=== PATIENT | male | born 1930 ===

== ENCOUNTER 2017-02-28 11:55 | Emergency (ER) | payer MEDICARE ==
[2017-02-28 12:44] VITALS: BMI 20.6
[2017-02-28 12:46] VITALS: RESP 18; TEMP 99; O2SAT 97
--- NOTE | 2017-02-28 13:48 | ED PDOC ---
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 On Tuesday, patient was lying down in a hammock and tried to get up but instead fell down onto his knees. Since then, pain has been gradually worsening and the right knee has become swollen. Patient is unable to extend his knee due to pain. Patient also complains of left ankle and foot swelling that was not present before the fall. Fall was unwitnessed, but patient denies hitting his head or losing consciousness. (Alonzo Beal) Past Medical History - Infectious Disease Hx of Infectious Diseases: None - Tetanus Immunization Tetanus Immunization: Unknown - Cardiac Hx Hypertension: Yes - Psychiatric Hx Depression: No Hx Emotional Abuse: No Hx Physical Abuse: No Hx Substance Use: No - Past Surgical History Past Surgical History: No Previous - Surgical History Other/Comment: Brain aneurysm. Ulcer - Anesthesia Hx Anesthesia: Yes Hx Anesthesia Reactions: No Hx Malignant Hyperthermia: No - Suicidal Assessment Feels Threatened In Home Enviroment: No <Alonzo Beal - Last Filed: 02/28/17 16:20> - Provider Review Nursing Documentation Reviewed: Yes <Arely Willis - Last Filed: 02/28/17 16:55> Family/Social History Family/Social History: No Known Family HX Smoking Status: Never Smoked Hx Alcohol Use: Yes Frequency of alcohol use: Socially Hx Substance Use: No <Alonzo Beal - Last Filed: 02/28/17 16:20> - Physician Review Nursing Documentation Reviewed: Yes <Arely Willis - Last Filed: 02/28/17 16:55> Allergies/Home Meds <Alonzo Beal - Last Filed: 02/28/17 16:20> <Arely Willis - Last Filed: 02/28/17 16:55> Allergies/Adverse Reactions: Allergies No Known Allergies Allergy (Verified 07/08/13 11:17) Home Medications: Home Meds Medication Instructions Recorded Confirmed Unobtainable 02/28/17 02/28/17 Review of Systems - Review of Systems Constitutional: Normal Eyes: Normal ENT: Normal Respiratory: Normal Cardiovascular: Normal Gastrointestinal: Normal Genitourinary Male: Normal Musculoskeletal: Other (right knee pain and swelling. left ankle and foot swelling) Skin: Other (erythema over right knee and right foot digits) Neurological: Normal <Alonzo Beal S - Last Filed: 02/28/17 16:20> Physical Exam Vital Signs Reviewed: Yes Appearance: Positive for: Comfortable Pain Distress: Mild Mental Status: Positive for: Alert and Oriented X 3 - Systems Exam Head: Present: Atraumatic, Normocephalic, Other (xanthomas around the eyes) Pupils: Present: PERRL Extroacular Muscles: Present: EOMI Conjunctiva: Present: Normal Mouth: Present: Moist Mucous Membranes Neck: Present: Normal Range of Motion Respiratory/Chest: Present: Clear to Auscultation, Good Air Exchange. No: Accessory Muscle Use Cardiovascular: Present: Regular Rate and Rhythm, Normal S1, S2 Abdomen: Present: Normal Bowel Sounds. No: Tenderness Upper Extremity: Present: Normal Inspection Lower Extremity: Present: Edema (left foot and ankle), CALF TENDERNESS (right calf tenderness s/p fall), NORMAL PULSES, Tenderness (right knee and right calf. also underside of left foot), Erythema (right knee, right foot digits). No: Normal ROM (impaired passive flexion and extension of right knee secondary to pain and edema) Neurological: Present: CN II-XII Intact, Normal Sensory Function. No: Gait Normal (could not test gait due to pain and unsteadiness with standing) Skin: Present: Warm, Dry Psychiatric: Present: Alert, Oriented x 3 <LianAlonzo S - Last Filed: 02/28/17 16:20> Temperature: Afebrile Blood Pressure: Hypertensive Pulse: Regular Respiratory Rate: Normal <Arely Willis - Last Filed: 02/28/17 16:55> Vital Signs Temp Pulse Resp BP Pulse Ox 02/28/17 16:13 61 18 141/75 97 02/28/17 15:20 66 18 145/79 97 02/28/17 13:57 64 18 148/89 97 02/28/17 12:44 99.0 F 66 18 152/98 H 97 Medical Decision Making <Alonzo Beal - Last Filed: 02/28/17 16:20> - RAD Interpretation Feed Crusher Operator: Radiologist <AnjelicaArely hidalgo - Last Filed: 02/28/17 16:55> ED Course and Treatment: 02/28/17 13:55 Left foot 3 views, Left ankle 3 views, Right knee with patella 3 views Ibuprofen 600 mg one time for pain 02/28/17 15:[address] Kurt Glover (orthopedic) for the right patellar fracture. Patient unable to even stand straight due to pain. (Alonzo Beal) 02/28/17 15:30 Ankle X-ray: Creator : Larisa Bennett MD FINDINGS: BONES: There is no acute displaced fracture or bone destruction. Bone alignment is normal. There is diffuse bone demineralization. JOINTS: Normal. Ankle mortise maintained. Talar dome intact SOFT TISSUES: There is mild periarticular soft tissue swelling. OTHER FINDINGS: None. IMPRESSION: No acute displaced fracture or dislocation. Mild periarticular soft tissue swelling. 02/28/17 15:30 Foot X-ray: Creator : Larisa Bennett MD FINDINGS: BONES: There is no acute displaced fracture or bone destruction. Bone alignment is normal. There is diffuse bone demineralization. JOINTS: Normal. SOFT TISSUES: Normal. OTHER FINDINGS: None. IMPRESSION: No acute displaced fracture or dislocation. 02/28/17 15:33 Knee X-ray: Creator : Larisa Bennett MD FINDINGS: BONES: There is an acute nondisplaced fracture in the anterior midbody of patella. JOINTS: The joint spaces are preserved. JOINT EFFUSION: There is a small suprapatellar joint effusion. OTHER FINDINGS: There is mild prepatellar soft tissue swelling IMPRESSION: Acute transverse nondisplaced fracture in the anterior mid body of the patella. Small suprapatellar joint effusion and mild prepatellar soft tissue swelling. In agreement with resident note, which includes further HPI details. Patient was seen and evaluated with resident, came up with plan and treatment together. He denies head trauma. Neurovascularly intact with R knee swelling. No bony hip tenderness 02/28/17 15:[address] Milan, missile control pilot ortho who reviewed images. He is requesting knee immobilizer with leg in extension, non-weight bearing and follow-up in his office on tuesday. Spoke to patient and patient's and daughter at length. I am concerned that patient will be unable to NWB and instead needs observation for PT/OT eval, SW eval for wheelchair or subacute rehab placement. Patinet refuses to stay in the ED. Family are aware that they can return at any time. Patient reports that he understands the importance on NWB 02/28/17 16:54 (Arely Willis) - RAD Interpretation Radiology Orders: 02/28/17 13:41 ANKLE LEFT 3 VIEWS ROUTINE [RAD] Stat FOOT LEFT 3 VIEWS ROUTINE [RAD] Stat KNEE RIGHT 2 VIEWS (AP & LAT) [RAD] Stat - Medication Orders Current Medication Orders: Discontinued Medications Ibuprofen (Motrin Tab) 600 mg PO STAT STA Stop: 02/28/17 13:48 Last Admin: 02/28/17 14:10 Dose: 600 mg <Alonzo Beal - Last Filed: 02/28/17 16:20> - PA / SLP / Resident Statement MD/DO has reviewed & agrees with the documentation as recorded. MD/DO has examined the patient and agrees with the treatment plan. - Scribe Statement The provider has reviewed the documentation as recorded by the Scribe <Arely Willis - Last Filed: 02/28/17 16:55> - Scribe Statement 02/28/2017 Shanda Andrews Provider Scribe Attestation: All medical record entries made by the Scribe were at my direction and personally dictated by me. I have reviewed the chart and agree that the record accurately reflects my personal performance of the history, physical exam, medical decision making, and the department course for this patient. I have also personally directed, reviewed, and agree with the discharge instructions and disposition. (Arely Willis) Disposition/Present on Arrival - Present on Arrival History of DVT/PE: No History of Uncontrolled Diabetes: No Urinary Catheter: No History of Decub. Ulcer: No History Surgical Site Infection Following: None <Alonzo Beal - Last Filed: 02/28/17 16:20> - Present on Arrival Any Indicators Present on Arrival: No - Disposition Have Diagnosis and Disposition been Completed?: Yes Disposition Time: 15:58 Patient Plan: Discharge <Arely Willis - Last Filed: 02/28/17 16:55> - Disposition Diagnosis: Patellar fracture Disposition: HOME/ ROUTINE Patient Problems: Current Active Problems Problem Status Onset Patellar fracture Acute Condition: GOOD Discharge Instructions (ExitCare): Patellar Fracture (ED) Additional Instructions: No weight bearing to R leg. Keep knee immobilizer in place. Follow-up with Dr. Milan on Tuesday. Motrin or tylenol for pain. Referrals: [employer] Ant Rejanel, [Primary Care Provider] - Follow up with primary Oc Thomas MD [Staff Provider] - Follow up with primary Forms: [employer] (Greenlandic)
--- NOTE | 2017-02-28 15:24 | RAD ---
PROCEDURE: Left Ankle Radiographs. HISTORY: swelling s/p fall COMPARISON: None FINDINGS: BONES: There is no acute displaced fracture or bone destruction. Bone alignment is normal. There is diffuse bone demineralization. JOINTS: Normal. Ankle mortise maintained. Talar dome intact SOFT TISSUES: There is mild periarticular soft tissue swelling. OTHER FINDINGS: None. IMPRESSION: No acute displaced fracture or dislocation. Mild periarticular soft tissue swelling.
--- NOTE | 2017-02-28 15:25 | RAD ---
PROCEDURE: Left Foot Radiographs. HISTORY: swelling s/p fall COMPARISON: None. FINDINGS: BONES: There is no acute displaced fracture or bone destruction. Bone alignment is normal. There is diffuse bone demineralization. JOINTS: Normal. SOFT TISSUES: Normal. OTHER FINDINGS: None. IMPRESSION: No acute displaced fracture or dislocation.
--- NOTE | 2017-02-28 15:26 | RAD ---
PROCEDURE: Right Knee Radiographs. HISTORY: pain and swelling s/p fall COMPARISON: None. FINDINGS: BONES: There is an acute nondisplaced fracture in the anterior midbody of patella. JOINTS: The joint spaces are preserved. JOINT EFFUSION: There is a small suprapatellar joint effusion. OTHER FINDINGS: There is mild prepatellar soft tissue swelling IMPRESSION: Acute transverse nondisplaced fracture in the anterior mid body of the patella. Small suprapatellar joint effusion and mild prepatellar soft tissue swelling.
[2017-02-28 16:13] VITALS: BP 141/75; PULSE 61
== END 2017-02-28 16:45 | disposition home or self-care (01) ==
LOC: ED 11:55
DX: S82.034A Nondisplaced transverse fracture of right patella, initial encounter for closed fracture (principal); W17.89XA Other fall from one level to another, initial encounter; Y93.89 Activity, other specified; Y92.89 Other specified places as the place of occurrence of the external cause